=== PATIENT | male | born 1990 | race Caucasian/White ===

== ENCOUNTER 2021-01-28 16:24 | Emergency (ER) | payer OTHER, SELFPAY ==
[2020-10-04 15:40] VITALS: BMI 32.1
[2021-01-28 16:26] VITALS: BP 135/78; PULSE 131; RESP 17; TEMP 35.6; O2SAT 96; BMI 32.8
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
[2021-01-28] MEDS: Ketorolac 15 MG/ML Vial IV (16:55)
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
[2021-01-28] MEDS: 0.9% Normal Saline 1,000 ML 150 ML IV (16:56)
[2021-01-28 17:04] LABS: Absolute Neutrophil Count 5.6 X10^3/uL (2.0-7.7); Basophil# 0.05 X10^3/uL; Basophil% 0.5 % (0-1); Eosinophils% 5.4 % (0-5); Hematocrit 49.9 % (40-54); Hemoglobin 17.5 g/dL (13.0-16.5); Lymphocyte % 24.9 % (19-41); Mean Corp Hgb Conc 35.1 g/dL (32-36); Mean Corpuscular Hgb 30.9 pg (27.0-32.0); Mean Corpuscular Volume 88.2 fL (80-94); Mean Platelet Vol. 8.7 fl (6.2-12.0); Monocyte# 0.71 X10^3/uL; Monocyte% 7.7 % (0-10); NRBC Flagged by Analyzer 0 % (0-5); Neutrophil # 5.61 X10^3/uL (2.7-7.7); Platelet Count 338 K/mm3 (150-450); RBC Distribution Width CV 11.9 % (11.6-14.6); RBC Distribution Width SD 38.5 fl (35.1-43.9); Red Blood Count 5.66 M/mm3 (4.6-6.2); White Blood Count 9.2 K/mm3 (4.4-11.0)
[2021-01-28 17:17] LABS: Anion Gap 6 (5-15); BUN 15 mg/dL (7-18); BUN/Creat Ratio 14.4 RATIO (10-20); Calcium,Total 9.5 mg/dL (8.5-10.1); Chloride 104 mmol/L (98-107); Creatinine, Serum 1.04 mg/dL (0.70-1.30); EST Glomerular Filtration Rate 88 mL/min (>60); Est Glom Filt Rate - Afr Amer 106 mL/min (>60); Estimated Creatinine Clearance 95.34 ml/min; Glucose 120 mg/dL (74-106); Potassium 3.8 mmol/L (3.5-5.1); Sodium Level 137 mmol/L (136-145)
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
[2021-01-28 17:29] LABS: Prothrombin Time (Protime)PT. 12.9 SECONDS (11.7-14.9)
[2021-01-28 17:49] LABS: CPK Total, Creatine Kinase 175 U/L (39-308)
[2021-01-28 17:49] LABS: Lactic Acid 1.7 mmol/L (0.4-1.9)
[2021-01-28 19:48] VITALS: PULSE 80
== END 2021-01-28 19:49 | disposition home or self-care (01) ==
PROVIDERS: Emergency Provider Emergency Medicine; PCP Internal Medicine
DX: M79.661 Pain in right lower leg (principal); R60.0 Localized edema; F32.9 Major depressive disorder, single episode, unspecified; J45.909 Unspecified asthma, uncomplicated; Z87.891 Personal history of nicotine dependence; Z79.899 Other long term (current) drug therapy
CPT/HCPCS: 73706; 80048; 82550; 83605; 85025; 85610; 93971; 96361; 96374; 99285; J7030; Q9967